=== PATIENT | female | born 1965 | race Caucasian/White ===

== ENCOUNTER 2021-12-04 05:55 | Day surgery (SDC) | payer MEDICAID, SELFPAY ==
[~2021-12-04] VITALS: Ht 152.4 cm; Wt 83.9 kg
[2021-12-04] MEDS ORDERED: MEPERIDINE 100 MG INJ. 100 MG/ML VIAL ONE (07:03)
[2021-12-04] MEDS ORDERED: MIDAZOLAM HCL 5 MG/5 ML VIAL ONE (07:03)
[2021-12-04 11:39] VITALS: BP_SYST 110
== END 2021-12-04 10:20 | disposition home or self-care (01) ==
LOC: SMU 05:55 → SDS 05:55
PROVIDERS: ATTEND Internal Medicine Gastroenterology
DX: K74.60 Unspecified cirrhosis of liver (principal); I85.10 Secondary esophageal varices without bleeding; K29.50 Unspecified chronic gastritis without bleeding; K31.9 Disease of stomach and duodenum, unspecified; E11.9 Type 2 diabetes mellitus without complications; I10 Essential (primary) hypertension; Z68.36 Body mass index [BMI] 36.0-36.9, adult; Z79.84 Long term (current) use of oral hypoglycemic drugs; Z88.1 Allergy status to other antibiotic agents; Z79.899 Other long term (current) drug therapy; Z20.822 Contact with and (suspected) exposure to COVID-19
CPT/HCPCS: 36415 ×2; 43239; 43244; 82962; 87081; 87426; 88305; 88312; 88313; 99152; G0378; J2175; J2250

== ENCOUNTER 2022-09-03 05:30 | Day surgery (SDC) | payer MEDICAID ==
[~2022-09-03] VITALS: Ht 154.9 cm; Wt 82.6 kg
[2022-09-03] MEDS ORDERED: MEPERIDINE 100 MG INJ. 100 MG/ML VIAL ONE (06:34)
[2022-09-03] MEDS ORDERED: MIDAZOLAM HCL 5 MG/5 ML VIAL ONE (06:35)
[2022-09-03 13:54] VITALS: BP_SYST 132
== END 2022-09-03 09:46 | disposition home or self-care (01) ==
LOC: SDS 05:30 → SMU 05:30 → SDS 09:46
PROVIDERS: ATTEND Internal Medicine Gastroenterology
DX: K62.5 Hemorrhage of anus and rectum (principal); I85.00 Esophageal varices without bleeding; K64.8 Other hemorrhoids; K57.30 Diverticulosis of large intestine without perforation or abscess without bleeding; K29.50 Unspecified chronic gastritis without bleeding; K74.60 Unspecified cirrhosis of liver; E11.9 Type 2 diabetes mellitus without complications; E78.00 Pure hypercholesterolemia, unspecified; I10 Essential (primary) hypertension; Z80.0 Family history of malignant neoplasm of digestive organs; Z88.0 Allergy status to penicillin; Z79.899 Other long term (current) drug therapy; Z20.822 Contact with and (suspected) exposure to COVID-19
CPT/HCPCS: 36415; 43244; 82962; 45380; 43239; 88305; 88312; 88313; 99152; 99153; U0003; G0378; J2250; J2175